=== PATIENT | male | born 1960 | race Caucasian/White ===

== ENCOUNTER 2025-11-22 12:50 | Emergency (ER) | payer OTHER, SELFPAY ==
[2025-11-22 13:35] LABS: Acetaminophen Less than 10 mcg/mL (Less than 10); Salicylate Less than 8.0 mg/dL (Less than 8.0)
[2025-11-22 13:49] LABS: Hematocrit 45.5 % (42.0-52.0); Hemoglobin 14.5 g/dL (14.0-18.0); MDiff Complete? YES; Mean Corpuscular Hemoglobin 31.0 pg (27.0-31.0); Mean Corpuscular Volume 97.1 fl (78.0-98.0); Platelet Count 268 10x3/uL (130-400); Red Blood Cell (RBC) Count 4.69 mill/uL (4.70-6.10); White Blood Cell (WBC) Count 12.7 10x3/uL (4.8-10.8)
[2025-11-22 13:56] LABS: ALT (SGPT) 7 U/L (Less than 45); AST (SGOT) 32 U/L (11-34); Albumin 3.4 g/dL (3.1-4.5); Alkaline Phosphatase 74 U/L (40-110); Anion Gap 21 mmol/L (10-20); BUN (Urea Nitrogen) 11 mg/dL (8.4-25.7); Bilirubin, Total 0.3 mg/dL (0.3-1.2); Calc. Creatinine Clearance 0 mL/min (70-130); Calcium 9.3 mg/dL (7.8-10.44); Carbon Dioxide 16 mmol/L (23-31); Chloride 100 mmol/L (98-107); Globulin 4.4 g/dL (2.4-3.5); Glucose 170 mg/dL (80-115); Potassium 4.4 mmol/L (3.5-5.1); Sodium 133 mmol/L (136-145)
[2025-11-22 14:03] LABS: Cocaine Metabolite Screen Negative (Negative); THC/Cannabinoid Screen Negative (Negative); Tricyclic Screen Negative (Negative)
[2025-11-22] MEDS ORDERED: levETIRAcetam 250 MG TAB ONE (15:30)
== END 2025-11-22 16:20 ==
LOC: BURERS 12:50 → EEVIPCON 12:50 → BURERS 16:20
DX: R56.9 Unspecified convulsions (principal)
CPT/HCPCS: 36415; 36416; 70450; 80053; 80306; 80307; 83605; 84146; 85025; 93005; J2060